=== PATIENT | female | born 1945 | race Caucasian/White ===

== ENCOUNTER 2024-07-01 13:45 | Inpatient (IN) | payer MEDICARE ==
[2024-07-01] MEDS ORDERED: Sodium Chloride 0.9% 10 ML Syringe FLUSH PRN (14:00)
[2024-07-01 14:17] LABS: BASOPHILS ABSOLUTE AUTO 0.05 K/uL (0.00-0.10); BASOPHILS PERCENT AUTO 0.7 % (0.1-1.3); EOSINOPHILS PERCENT AUTO 0.1 % (0.0-5.4); HEMATOCRIT 43.1 % (34.3-46.0); HEMOGLOBIN 15.2 g/dL (11.2-15.5); IMMATURE GRAN PERCENT AUTO 0.3 % (0.0-0.7); LYMPHOCYTES PERCENT AUTO 7.9 % (11.4-47.7); MEAN CORPUSCULAR HEMOGLOBIN 30.9 pg (31.6-35.5); MEAN CORPUSCULAR HGB CONC 35.3 g/dL (31.6-35.5); MEAN CORPUSCULAR VOLUME 87.6 fL (81.4-99.0); MONOCYTES ABSOLUTE AUTO 0.54 K/uL (0.20-0.90); MONOCYTES PERCENT AUTO 7.1 % (3.3-12.6); NEUTROPHILS PERCENT AUTO 83.9 % (40.0-78.1); PLATELET COUNT,PLT 182 K/uL (130-375); RED BLOOD CELL COUNT 4.92 M/uL (3.77-5.24); WHITE BLOOD CELL COUNT,WBC 7.6 K/uL (3.2-11.0)
[2024-07-01 14:18] LABS: EOSINOPHILS ABSOLUTE AUTO 0.01 K/uL (0.00-0.40); IMMATURE GRAN ABSOLUTE AUTO 0.02 K/uL (0.00-0.23)
[2024-07-01] MEDS: Lactated Ringers 1,000 ML IV ONE (14:22)
[2024-07-01 14:47] LABS: A/G RATIO 0.8 (1.2-2.2); ALANINE AMINOTRANSFERASE,ALT 131 U/L (12-78); ALBUMIN 2.9 g/dL (3.4-5.0); ALKALINE PHOSPHATASE 83 U/L (46-116); ASPARTATE AMNIOTRANSFERASE,AST 460 U/L (15-37); BILIRUBIN TOTAL 0.9 mg/dL (0.2-1.0); BLOOD UREA NITROGEN,BUN 29 mg/dL (7-18); CARBON DIOXIDE,CO2 28 mmol/L (21-32); CHLORIDE,CL 105 mmol/L (100-108); CREATININE 1.5 mg/dL (0.6-1.0); EST CRCL DRUG DOSING (CG) 29.09 mL/min; ESTIMATED GFR 35 mL/min (>60); GLUCOSE RANDOM 156 mg/dL (74-106); POTASSIUM,K 3.3 mmol/L (3.6-5.2); PROTEIN TOTAL,TP 6.4 g/dL (6.4-8.2); SODIUM,NA 144 mmol/L (140-148)
[2024-07-01 14:50] LABS: ANION GAP 14.3 mmol/L (5.0-14.0)
[2024-07-01 15:36] LABS: CREATINE KINASE,CK 38306 U/L (26-192)
[2024-07-01] MEDS: Sodium Chloride 0.9% 1,000 ML IV SCH ×3 (15:49→21:50)
[2024-07-01] MEDS ORDERED: Sodium Chloride 0.9% 1,000 ML IV SCH (17:45)
[2024-07-01 18:27] LABS: APPEARANCE,URINE SLIGHTLY CLOUDY (CLEAR); BILIRUBIN,URINE NEGATIVE (NEGATIVE); COLOR,URINE YELLOW (YELLOW); GLUCOSE,URINE 500 mg/dL (NEGATIVE); KETONES,URINE 15 mg/dL (NEGATIVE); LEUKOCYTE ESTERASE,URINE NEGATIVE (NEGATIVE); NITRITE,URINE NEGATIVE (NEGATIVE); OCCULT BLOOD,URINE LARGE (NEGATIVE); PROTEIN,URINE 100 mg/dL (NEGATIVE); UROBILINOGEN,URINE 0.2 EU/dL (0.2-1.0)
[2024-07-01 18:32] LABS: AMORPHOUS SEDIMENT,URINE NOT SEEN; BACTERIA,URINE FEW; EPITHELIAL CELLS,URINE FEW; MUCUS,URINE NOT SEEN
[2024-07-01] MEDS ORDERED: Ondansetron 4 MG/2 ML SDV IV PRN (19:37)
[2024-07-01] MEDS ORDERED: Ondansetron 4 MG Tab.DIS PO PRN (19:37)
[2024-07-01] MEDS: Sodium Chloride 0.9% 1,000 ML IV ONE (19:42)
[2024-07-01] MEDS: Acetaminophen 325 MG Tab PO PRN (20:20)
[2024-07-01] MEDS: Insulin Lispro 100 Unit/ML 3 ML KwikPen SUBCUT SCH (21:23)
[2024-07-01] MEDS: Enoxaparin 30 MG/0.3 ML Syringe SUBCUT SCH (21:25)
[2024-07-01 23:31] LABS: CALCIUM 7.9 mg/dL (8.5-10.1); CREATININE 1.3 mg/dL (0.6-1.0); EST CRCL DRUG DOSING (CG) 33.56 mL/min; POTASSIUM,K 3.2 mmol/L (3.6-5.2)
[2024-07-01 23:32] LABS: ANION GAP 11.2 mmol/L (5.0-14.0)
[2024-07-01] MEDS: oxyCODONE 5 MG Tab PO PRN (23:52)
[2024-07-01] MEDS: Potassium Chloride 20 MEQ Tab.ER PO ONE (23:52)
[2024-07-02] MEDS: Sodium Chloride 0.9% 1,000 ML IV SCH ×2 (02:58→13:59)
[2024-07-02 06:39] LABS: HEMATOCRIT 37.2 % (34.3-46.0); MEAN CORPUSCULAR HEMOGLOBIN 31.1 pg (31.6-35.5); MEAN CORPUSCULAR HGB CONC 34.9 g/dL (31.6-35.5); RED BLOOD CELL COUNT 4.18 M/uL (3.77-5.24); WHITE BLOOD CELL COUNT,WBC 4.9 K/uL (3.2-11.0)
[2024-07-02 07:06] LABS: CALCIUM 7.8 mg/dL (8.5-10.1); CREATININE 1.2 mg/dL (0.6-1.0); EST CRCL DRUG DOSING (CG) 36.36 mL/min; MAGNESIUM 1.3 mg/dL (1.8-2.4); POTASSIUM,K 3.8 mmol/L (3.6-5.2)
[2024-07-02 07:25] LABS: ANION GAP 11.8 mmol/L (5.0-14.0)
[2024-07-02] MEDS: Empagliflozin 10 MG Tab PO SCH (08:19)
[2024-07-02] MEDS: Allopurinol 100 MG Tab PO SCH (08:19)
[2024-07-02] MEDS: Hydrochlorothiazide 25 MG Tab PO SCH (08:20)
[2024-07-02] MEDS: Losartan 25 MG Tab PO SCH (08:20)
[2024-07-02] MEDS: Pantoprazole 40 MG Tab.CR PO SCH (08:20)
[2024-07-02] MEDS: Trospium 20 MG Tab PO SCH (08:22)
[2024-07-02] MEDS: Magnesium Sulfate/Water Premix 2 GM in Premix Bag 1 BAG IV SCH (12:00)
[2024-07-02] MEDS: Magnesium Oxide 400 MG Tab PO SCH (12:00)
[2024-07-02] MEDS: Tamoxifen 10 MG Tab PO SCH (12:23)
[2024-07-02 17:39] LABS: ANION GAP 9.5 mmol/L (5.0-14.0); CALCIUM 8.6 mg/dL (8.5-10.1); CREATININE 1.4 mg/dL (0.6-1.0); EST CRCL DRUG DOSING (CG) 31.17 mL/min; POTASSIUM,K 4.4 mmol/L (3.6-5.2)
[2024-07-02] MEDS: Pramipexole 0.5 MG Tab PO SCH (20:35)
[2024-07-02] MEDS: Melatonin 3 MG Tab PO PRN (21:54)
[2024-07-03 06:51] LABS: CALCIUM 8.1 mg/dL (8.5-10.1); CREATININE 1.2 mg/dL (0.6-1.0); EST CRCL DRUG DOSING (CG) 36.36 mL/min; MAGNESIUM 2.4 mg/dL (1.8-2.4); POTASSIUM,K 3.8 mmol/L (3.6-5.2)
[2024-07-03 07:07] LABS: ANION GAP 12.8 mmol/L (5.0-14.0)
[2024-07-03] MEDS ORDERED: 50% Dextrose in Water 50 ML Syringe IVPUSH PRN (11:20)
[2024-07-03] MEDS ORDERED: Glucagon,Human Recombinant 1 MG Vial IM PRN (11:20)
[2024-07-03] MEDS: TAMOXIFEN 10 MG PO SCH (11:22)
[2024-07-03] MEDS: Insulin Glargine,Human Rec. Analog 100 Units/ML 3 ML Pen SUBCUT SCH (12:45)
[2024-07-03] MEDS: Sodium Chloride 0.9% 1,000 ML IV SCH (14:10)
[2024-07-04 05:45] LABS: CALCIUM 8.7 mg/dL (8.5-10.1); CREATININE 1.3 mg/dL (0.6-1.0); EST CRCL DRUG DOSING (CG) 33.56 mL/min; POTASSIUM,K 4.4 mmol/L (3.6-5.2)
[2024-07-04 05:47] LABS: ANION GAP 12.4 mmol/L (5.0-14.0)
[2024-07-04] MEDS: Furosemide 40 MG/4 ML VIAL IVPUSH ONE (12:31)
[2024-07-05 05:37] LABS: ANION GAP 5.1 mmol/L (5.0-14.0); CALCIUM 8.9 mg/dL (8.5-10.1); CREATININE 1.5 mg/dL (0.6-1.0); EST CRCL DRUG DOSING (CG) 29.09 mL/min; POTASSIUM,K 4.5 mmol/L (3.6-5.2)
== END 2024-07-05 12:44 | disposition home or self-care (01) | DRG 565 ==
LOC: JP.ED 13:45 → EDBD 13:45 → JP.MS 18:56
PROVIDERS: ADMIT Registered Nurse; ATTEND Internal Medicine
DX: T79.6XXA Traumatic ischemia of muscle, initial encounter (principal); I10 Essential (primary) hypertension; E11.9 Type 2 diabetes mellitus without complications; N17.9 Acute kidney failure, unspecified; N18.9 Chronic kidney disease, unspecified; W19.XXXA Unspecified fall, initial encounter; E11.22 Type 2 diabetes mellitus with diabetic chronic kidney disease; Z91.041 Radiographic dye allergy status; N18.32 Chronic kidney disease, stage 3b; H54.7 Unspecified visual loss; I12.9 Hypertensive chronic kidney disease with stage 1 through stage 4 chronic kidney disease, or unspecified chronic kidney disease; Z79.82 Long term (current) use of aspirin; Z79.4 Long term (current) use of insulin; Z79.84 Long term (current) use of oral hypoglycemic drugs; Z79.899 Other long term (current) drug therapy; Z85.3 Personal history of malignant neoplasm of breast; Z90.710 Acquired absence of both cervix and uterus; Z90.49 Acquired absence of other specified parts of digestive tract
CPT/HCPCS: 36415; 72192 ×2; 73502 ×2; 76377; 80053; 81001; 82550 ×2; 82947; 83880; 85025; 99285; J7030 ×2; J7120; 51702; 80048; 83735; 84100; 85027; 87086; 97116-GP; 97162-GP; 97530-GP; 99222; 99232; 99238; A9270-GY; J1650; J1815; J1815-GY; J1940; J3475